=== PATIENT | female | born 1990 | race Caucasian/White ===

== ENCOUNTER → 2017-12-22 | Outpatient (CLI) | payer BC | END | disposition home or self-care (01) | LOC: KCIC US 15:28 | DX: Z34.81 Encounter for supervision of other normal pregnancy, first trimester (principal); Z3A.08 8 weeks gestation of pregnancy | CPT/HCPCS: 76801 ==

== ENCOUNTER → 2018-03-24 | Outpatient (CLI) | payer BC ==
--- NOTE | 2018-03-24 17:13 | RAD ---
Obstetrical ultrasound, 03/24/2018: HISTORY: Large for dates There is a single intrauterine fetus present in a variable orientation. The biparietal diameter measures 5.3 cm compatible with a gestational age of 22 weeks. This corresponds well with the other measurements yielding an average gestational age of 21 weeks and 4 days and a sonographic EDC of 07/31/2018. This is somewhat advanced relative to the EDC of 08/12/2018 established on the previous study of 12/22/2017. Normal activity and heart motion were seen. A four-vessel heart is evident with a heart rate of 139 bpm. A three-vessel umbilical cord is evident with a normal cord insertion site. Fluid is identified in the bladder and stomach. The visualized portions of the kidneys and spine are unremarkable. The head to abdominal circumference ratio is within normal limits. The placenta lies posteriorly with no evidence of a placenta previa. A normal amount of amniotic fluid is present with the ENOC calculated 10.6. The cervical length was estimated at 4.3 cm. IMPRESSION: 1. Single viable intrauterine fetus as described above. 2. The EDC of 08/12/2018 established on the previous ultrasound of 12/22/2017 should be more accurate considering the stage in at which it was established. The mild discrepancy between that EDC and the current EDC described above may reflect a constitutionally large fetus. Electronically signed by: Sanjay Hall MD (03/24/2018 5:10 PM) [facility]
== END | disposition home or self-care (01) ==
LOC: US 15:02
PROVIDERS: ATTEND Family Medicine
DX: O36.62X0 Maternal care for excessive fetal growth, second trimester, not applicable or unspecified (principal); Z3A.22 22 weeks gestation of pregnancy
CPT/HCPCS: 76805

== ENCOUNTER → 2018-06-08 | Outpatient (CLI) | payer BC ==
--- NOTE | 2018-06-08 16:23 | RAD ---
Obstetrical ultrasound, 06/08/2018: HISTORY: Low weight gain in There is a single intrauterine fetus in a cephalic orientation. The biparietal diameter measures 8.4 cm compatible with a gestational age of nearly 34 weeks. This corresponds well with the other measurements yielding a sonographic EDC of 07/20/2018. Note is made that on 12/22/2017 an EDC of 08/12/2018 was estimated. On 03/24/2018 and EDC of 07/31/2018 was estimated. The current EDC is therefore advanced relative to the prior studies. The EDC of 08/12/2018 established on the original study should be more accurate considering the stage in at which it was established. The findings suggest a constitutionally large fetus. Normal activity and heart motion were seen. A four-chamber heart is evident with a heart rate of 143 bpm. Fluid is identified in the bladder and stomach. The spine was not optimally visualized due to the position and the stage of . A three-vessel umbilical cord is evident. The head to abdominal circumference ratio is within normal limits. The weight was estimated at 5 pounds and 3 ounces +/- 12 ounces. A normal amount of amniotic fluid is present with the ENOC calculated at 10.9. The placenta lies posteriorly with no evidence of a placenta previa. The cervical length is 4.5 cm. IMPRESSION: 1. Single viable intrauterine fetus as described above. 2. The growth over the series of ultrasound exams suggests a constitutionally large fetus, as described above. Electronically signed by: Sanjay Hall MD (06/08/2018 4:18 PM) [facility]
== END | disposition home or self-care (01) ==
LOC: US 12:55
PROVIDERS: ATTEND Family Medicine
DX: O26.13 Low weight gain in pregnancy, third trimester (principal); Z3A.34 34 weeks gestation of pregnancy
CPT/HCPCS: 76805

== ENCOUNTER → 2018-07-25 | Outpatient (CLI) | payer BC ==
[~2018-07-25] MED LIST: FERR325T72 PO; HYDR-2765 PO; IBUP-1060 PO
--- NOTE | 2018-07-26 03:32 | KCIC ---
OB ultrasound dated 07/25/2018: No comparison available. Clinical Indication: Large for dates. Findings: There is a single intrauterine gestation in cephalic presentation. The placenta is posterior and fundal in location without evidence of placental previa. The amount of amniotic fluid appears appropriate. ENOC equals 15.4 cm. Cervix is not well visualized and accurate cervical length could not be made. Biometrical data is as follows: BPD = 9.4 cm for 38 weeks 2 days. HC = 33.8 cm for 38 weeks 6 days. AC = 35.6 cmfor 39 weeks 3 days. FL = 7.4 cm for 37 weeks 6 days. Overall, the estimated sonographic gestational age is 38 weeks 4 days for an estimated date of delivery of 08/04/2018.. This is within 8 days of the estimated date of delivery provided by the last menstrual period. Estimated weight is 3628 g. A complete survey was not performed. heart rate 130 bpm. There is positive movement. Impression: Single viable intrauterine gestation with estimated sonographic gestational age of 38 weeks 4 days. This is approximately 8 days off the dates estimated by the last menstrual period. Correlate clinically. Electronically signed by: Acosta Morgan MD (07/26/2018 3:29 AM) [facility]
== END | disposition home or self-care (01) ==
LOC: KCIC US 15:10
PROVIDERS: ATTEND Family Medicine
DX: Z34.03 Encounter for supervision of normal first pregnancy, third trimester (principal); Z3A.38 38 weeks gestation of pregnancy
CPT/HCPCS: 76805

== ENCOUNTER 2018-08-06 19:19 | Inpatient (IN) | payer BC ==
[~2018-08-06] VITALS: Ht 157.5 cm; Wt 72.1 kg
[2018-08-06] MEDS ORDERED: IBUPROFEN 400 MG TABLET. PO PRN (19:45)
[2018-08-06] MEDS ORDERED: ONDANSETRON PF 4 MG/2 ML VIAL. IV PRN (19:45)
[2018-08-06] MEDS ORDERED: MAG HYDROX/ALUMINUM HYD/SIMETH 30 ML ORAL.SUSP PO PRN (19:45)
[2018-08-06] MEDS ORDERED: OXYTOCIN 30 UNIT/500 ML PREMIX 500 ML IV PRN (19:45)
[2018-08-06] MEDS ORDERED: NALBUPHINE 10 MG/ML AMPUL. IV PRN (19:45)
[2018-08-06] MEDS ORDERED: ACETAMINOPHEN 325 MG TABLET. PO PRN (19:45)
[2018-08-06] MEDS ORDERED: 0.9 % SODIUM CHLORIDE 10 ML DISP.SYRIN. IV PRN (19:45)
[2018-08-06] MEDS ORDERED: CITRIC ACID/SODIUM CITRATE 30 ML SOLUTION. PO PRN (19:45)
[2018-08-06] MEDS ORDERED: DOCUSATE SODIUM 283 MG/5 ML ENEMA. PR PRN (19:45)
[2018-08-06] MEDS ORDERED: TERBUTALINE 1 MG/ML VIAL. SQ PRN (19:45)
[2018-08-06] MEDS ORDERED: ZOLPIDEM 5 MG TABLET. PO PRN (19:45)
[2018-08-06] MEDS ORDERED: DINOPROSTONE 10 MG SUPP.VAG VG ONE (20:30)
[2018-08-06 20:54] LABS: BASO # 0.1 x10^3/uL (0.0-0.2); BASO % 1 % (0-3); EOS # 0.1 x10^3/uL (0.0-0.7); EOS % 1 % (0-3); HEMATOCRIT 36.2 % (36.0-47.0); HEMOGLOBIN 12.3 g/dL (12.0-15.5); LYMPH # 1.8 x10^3/uL (1.0-4.8); LYMPH % 20 % (24-48); MEAN CORPUSCULAR HEMOGLOBIN 33 pg (25-35); MEAN CORPUSCULAR HGB CONC 34 g/dL (31-37); MEAN CORPUSCULAR VOLUME 97 fL (79-100); MONO # 0.7 x10^3/uL (0.0-1.1); MONO % 8 % (0-9); NEUT # 6.4 x10^3uL (1.8-7.7); NEUT % 70 % (31-73); PLATELET COUNT 159 x10^3/uL (140-400); RED BLOOD COUNT 3.74 x10^6/uL (3.50-5.40); RED CELL DISTRIBUTION WIDTH 13.7 % (11.5-14.5); WHITE BLOOD COUNT 9.1 x10^3/uL (4.0-11.0)
[2018-08-06] MEDS ORDERED: AMPICILLIN SODIUM 2 GM in IV NORMAL SALINE 100ML 100 ML IV ONE (22:00)
[2018-08-06] MEDS: IV RINGERS,LACTATED 1000ML 1,000 ML IV SCH (22:06)
[2018-08-07] MEDS: AMPICILLIN SODIUM 1 GM in IV NORMAL SALINE 50ML 50 ML IV SCH ×4 (02:39→13:49)
[2018-08-07] MEDS ORDERED: OXYTOCIN 30 UNIT/500 ML PREMIX 500 ML IV PRN ×2 (06:00→19:15)
[2018-08-07] MEDS: IV RINGERS,LACTATED 1000ML 1,000 ML IV SCH ×2 (09:59→13:53)
[2018-08-07] MEDS: fentaNYL PF VIAL 100 MCG/2 ML VIAL IV PRN ×3 (12:47→18:30)
--- NOTE | 2018-08-07 12:48 | PDOC1 ---
OB - History Hx of Present Care: Good Care Ultrasounds: Normal mid trimester US Obstetrical Complications: Other ( macrosomia) Past Family/Social History * Past Medical, Surgical, Family and Obstetric Histories reviewed from chart. Blood Type: A+ Rubella: Immune RPR/VDRL: Negative GBS Status: Positive HBsAG: Negative OB - Chief Complaint & HPI Date of Admission: Date of Admission: Aug 06, 2018 at 19:19 Chief Complaint/History : 1 Para: 0 EDC: Aug 12, 2018 Reason for admission: induction of labor Indication for induction: other (he'll macrosomia) Admission Nurse Assessment Rev: Yes OB - Admission Exam Physical Exam HEENT: Normal, Nasal Mucosa Normal, Oropharynx Normal, Moist Membranes, Fontanelles Normal Lungs: Clear, Equal Abdomen: Gravid Extremities: Normal Pulses, No tenderness or swelling Reflexes: Normal Cervical Dilatation: 2cm Effacement: 75% Station: -2 Membranes: Ruptured Amniotic Fluid: Clear Heart Rate: Normal Accelerations: Accelerations Present Short Term Variability: Present Mcc Variability: Moderate Contractions on Admission: None Intensity: Moderate NELSON ECHEVARRIA MD Aug 07, 2018 12:48
[2018-08-07] MEDS ORDERED: ePHEDrine PF IN SALINE 50 MG/10 ML SYRINGE. IV PRN (13:15)
[2018-08-07] MEDS ORDERED: fentaNYL PF VIAL 100 MCG/2 ML VIAL EPI ONE (13:15)
[2018-08-07] MEDS ORDERED: NALOXONE 0.4 MG/ML VIAL. IV PRN (13:15)
[2018-08-07] MEDS ORDERED: ONDANSETRON PF 4 MG/2 ML VIAL. IV PRN (13:15)
[2018-08-07] MEDS ORDERED: ROPIVacaine 0.2% PF 10 ML VIAL. ONE ×4 (13:16→15:43)
[2018-08-07] MEDS: L&D EPIDURAL SYRINGE 50 ML EPID PRN ×2 (13:22→15:43)
[2018-08-07] MEDS ORDERED: LIDOCAINE 2% PF 5 ML VIAL. ONE (14:39)
[2018-08-07] MEDS: LIDOCAINE 1% PF 30 ML VIAL. INJ PRN ×2 (17:11→18:48)
[2018-08-07] MEDS ORDERED: BENZOCAINE 20% TOPICAL AEROSOL SPRAY 57GM CAN. TP PRN ×2 (18:45→19:15)
[2018-08-07 18:52] LABS: BASE EXCESS IS ARTERIAL -6 mmol/L (0-3); CORRECTED PCO2 64 mmHg; CORRECTED PH 7.15; CORRECTED PO2 14 mmHg; HCO3 IS ARTERIAL 22 mmol/L (21-28); PCO2 IS ARTERIAL 64 mmHg (35-45); PH IS ARTERIAL 7.15 (7.35-7.45); PO2 IS ARTERIAL 14 mmHg (75-100); SAT O2 IS ARTERIAL 11 % (95-99); TCO2 IS ARTERIAL 24 mmol/L (21-32)
[2018-08-07 18:52] LABS: ISTAT BE VENOUS -8 mmol/L (0-3); ISTAT HCO3 VEN 19 mmol/L (24-28); ISTAT PCO2 VEN 44 mmHg (41-51); ISTAT PH VEN 7.26 (7.32-7.42); ISTAT PO2 VEN 23 mmHg (20-40); ISTAT SAT O2 VEN 31 %; ISTAT TCO2 VEN 21 mmol/L (21-32)
[2018-08-07] MEDS ORDERED: HYDROcodone/APAP 7.5/325MG 1 TAB TABLET PO PRN (19:15)
[2018-08-07] MEDS ORDERED: diphenhydrAMINE HCL 25 MG CAPSULE PO PRN (19:15)
[2018-08-07] MEDS ORDERED: HYDROCORTISONE 1% TOPICAL OINTMENT 30GM TUBE. TP PRN (19:15)
[2018-08-07] MEDS ORDERED: MMR per PROTOCOL. MC PRN (19:15)
[2018-08-07] MEDS ORDERED: MAG HYDROX/ALUMINUM HYD/SIMETH 30 ML ORAL.SUSP PO PRN (19:15)
[2018-08-07] MEDS ORDERED: ACETAMINOPHEN 325 MG TABLET. PO PRN (19:15)
[2018-08-07] MEDS ORDERED: SIMETHICONE 80 MG TAB.CHEW PO PRN (19:15)
[2018-08-07] MEDS ORDERED: 0.9 % SODIUM CHLORIDE 10 ML DISP.SYRIN. IV PRN (19:15)
[2018-08-07] MEDS ORDERED: ZOLPIDEM 5 MG TABLET. PO PRN (19:15)
[2018-08-07] MEDS ORDERED: PHENYLEPH/MINERAL OIL/PETROLAT RECTAL OINTMENT 28GM TUBE. RC PRN (19:15)
--- NOTE | 2018-08-07 19:39 | OP ---
DATE OF SURGERY: 08/07/2018 CLINICAL COURSE: This patient is a 28-year-old female, with EDC of 08/12/2018, admitted for elective induction due to macrosomia. The patient is GBS positive, but had no other complications or risks. She received Cervidil, cervical ripening was 2-3 cm dilating to 3 cm overnight and underwent Pitocin augmentation with artificial rupture of membranes at 4 cm with clear fluid noted. The patient progressed to complete without complications. Had failed epidural and delivered a viable male infant. 's head was delivered and suctioned. Subsequently, the shoulders were delivered after reduction of a nuchal cord, 30 seconds of placental resuscitation was done. Cord was clamped and transected, and infant was handed off. Second-degree episiotomy was done prior to delivery of the head and fourth-degree extension was noted after delivery. This was sutured in a layered fashion with initial rectum sutured with imbricating sutures of 3-0 chromic, Kadi's layer then was closed and muscle was approximated. Muscle was closed with 3-0 Vicryl with [id number] sutures superiorly, inferiorly, posteriorly and anteriorly. Second-degree episiotomy was then closed with 3-0 chromic in a running locking fashion. Placenta was delivered intact with 3-vessel cord noted. Uterus was firm with Pitocin on palpation. There was approximately 350 mL blood loss. Vaginal vault was inspected and cervix was inspected without laceration. There was good hemostasis at the end of repair. Mother and baby went to recovery in stable condition. The patient had 4 doses of antibiotics due to GBS positive status prior to delivery. NELSON ECHEVARRIA MD DR: LAYA/francie JOB#: [id number] / [id number]
[2018-08-07] MEDS: HYDROcodone/APAP 7.5/325MG 1 TAB TABLET PO PRN (20:34)
[2018-08-07] MEDS: IBUPROFEN 200 MG TABLET. PO SCH (20:35)
[2018-08-07] MEDS ORDERED: IBUPROFEN 200 MG TABLET. PO SCH (22:00)
[2018-08-07 22:30] VITALS: BP 118/74
[2018-08-07 23:30] VITALS: BP 113/63
[2018-08-08] MEDS: IBUPROFEN 200 MG TABLET. PO SCH ×2 (03:55→16:24)
[2018-08-08] MEDS: HYDROcodone/APAP 7.5/325MG 1 TAB TABLET PO PRN ×3 (04:00→16:23)
[2018-08-08 04:21] VITALS: BP 115/72
[2018-08-08 04:56] LABS: HEMATOCRIT 31.2 % (36.0-47.0); HEMOGLOBIN 10.4 g/dL (12.0-15.5); RED BLOOD COUNT 3.24 x10^6/uL (3.50-5.40); RED CELL DISTRIBUTION WIDTH 13.6 % (11.5-14.5); WHITE BLOOD COUNT 16.3 x10^3/uL (4.0-11.0)
[2018-08-08] MEDS ORDERED: FERROUS SULFATE 325 MG TABLET. PO SCH (08:00)
[2018-08-08] MEDS: MAGNESIUM HYDROXIDE 2,400 MG/30 ML ORAL.SUSP. PO PRN (10:43)
[2018-08-08 12:15] VITALS: BP 121/78
[2018-08-08 16:39] VITALS: BP 141/75
--- NOTE | 2018-08-08 17:18 | PDOC ---
PROGRESS NOTES Subjective Subjective Patient doing well day 1. Good pain control tolerating diet and ambulating. Decrease Jacki and bleeding. Low platelets and leukocytosis noted on CBC mild expected hemorrhagic anemia. Objective Objective Vital Signs Date Time Temp Pulse Resp B/P (MAP) Pulse Ox O2 Delivery O2 Flow Rate FiO2 08/08/18 16:39 97.7 98 18 141/75 (97) Room Air 98.0 97.7 08/08/18 12:15 97 Physical Exam Abdomen: Normal bowel sounds, Other (uterus firm.) Heart: Regular rate Extremities: No edema, Other (negative Alicia's sign) General: Alert Lungs: Clear to auscultation Assessment Assessment day 1. Thrombocytopenia Plan Plan of Care Continue routine care Recheck CBC in a.m. Comment Review of Relevant I have reviewed the following items anirudh (where applicable) has been applied. Labs Laboratory Tests Test 08/06/18 20:30 08/07/18 18:40 08/07/18 18:45 08/08/18 04:38 White Blood Count 9.1 x10^3/uL (4.0-11.0) 16.3 x10^3/uL (4.0-11.0) Red Blood Count 3.74 x10^6/uL (3.50-5.40) 3.24 x10^6/uL (3.50-5.40) Hemoglobin 12.3 g/dL (12.0-15.5) 10.4 g/dL (12.0-15.5) Hematocrit 36.2 % (36.0-47.0) 31.2 % (36.0-47.0) Mean Corpuscular Volume 97 fL (79-100) 96 fL (79-100) Mean Corpuscular Hemoglobin 33 pg (25-35) 32 pg (25-35) Mean Corpuscular Hemoglobin Concent 34 g/dL (31-37) 33 g/dL (31-37) Red Cell Distribution Width 13.7 % (11.5-14.5) 13.6 % (11.5-14.5) Platelet Count 159 x10^3/uL (140-400) 137 x10^3/uL (140-400) Neutrophils (%) (Auto) 70 % (31-73) Lymphocytes (%) (Auto) 20 % (24-48) Monocytes (%) (Auto) 8 % (0-9) Eosinophils (%) (Auto) 1 % (0-3) Basophils (%) (Auto) 1 % (0-3) Neutrophils # (Auto) 6.4 x10^3uL (1.8-7.7) Lymphocytes # (Auto) 1.8 x10^3/uL (1.0-4.8) Monocytes # (Auto) 0.7 x10^3/uL (0.0-1.1) Eosinophils # (Auto) 0.1 x10^3/uL (0.0-0.7) Basophils # (Auto) 0.1 x10^3/uL (0.0-0.2) Treponema pallidum Antibody Nonreactive (Nonreactive) Bedside Arterial pH 7.15 (7.35-7.45) Arterial Blood pH (Temp corrected) 7.15 Bedside Arterial pCO2 64 mmHg (35-45) Arterial Blood pCO2 (Temp correct) 64 mmHg Bedside Arterial pO2 14 mmHg (75-100) Arterial Blood pO2 (Temp corrected) 14 mmHg Arterial Blood HCO3 22 mmol/L (21-28) Bedside Arterial Blood O2 Sat 11 % (95-99) Bedside FiO2 21.0 21.0 Bedside Venous pH 7.26 (7.32-7.42) Bedside Venous pCO2 44 mmHg (41-51) Bedside Venous pO2 23 mmHg (20-40) Venous Blood HCO3 19 mmol/L (24-28) POC Venous O2 Saturation (Jacob) 31 % Laboratory Tests Test 08/07/18 18:40 08/07/18 18:45 08/08/18 04:38 Bedside Arterial pH 7.15 (7.35-7.45) Arterial Blood pH (Temp corrected) 7.15 Bedside Arterial pCO2 64 mmHg (35-45) Arterial Blood pCO2 (Temp correct) 64 mmHg Bedside Arterial pO2 14 mmHg (75-100) Arterial Blood pO2 (Temp corrected) 14 mmHg Arterial Blood HCO3 22 mmol/L (21-28) Bedside Arterial Blood O2 Sat 11 % (95-99) Bedside FiO2 21.0 21.0 Bedside Venous pH 7.26 (7.32-7.42) Bedside Venous pCO2 44 mmHg (41-51) Bedside Venous pO2 23 mmHg (20-40) Venous Blood HCO3 19 mmol/L (24-28) POC Venous O2 Saturation (Jacob) 31 % White Blood Count 16.3 x10^3/uL (4.0-11.0) Red Blood Count 3.24 x10^6/uL (3.50-5.40) Hemoglobin 10.4 g/dL (12.0-15.5) Hematocrit 31.2 % (36.0-47.0) Mean Corpuscular Volume 96 fL (79-100) Mean Corpuscular Hemoglobin 32 pg (25-35) Mean Corpuscular Hemoglobin Concent 33 g/dL (31-37) Red Cell Distribution Width 13.6 % (11.5-14.5) Platelet Count 137 x10^3/uL (140-400) Medications Current Medications Sodium Chloride (Normal Saline Flush) 3 ml QSHIFT PRN IV AFTER MEDS AND BLOOD DRAWS; Start 08/06/18 at 19:45 Ringer's Solution 1,000 ml @ 125 mls/hr Q8H IV Last administered on 08/07/18at 13:53; Start 08/06/18 at 20:00 Nalbuphine HCl (Nubain) 10 mg PRN Q1HR PRN IV Severe labor pain; Start at 19:45 Acetaminophen (Tylenol) 650 mg PRN Q6HRS PRN PO MILD PAIN / TEMP; Start at 19:45; Stop 08/07/18 at 19:26; Status DC Ondansetron HCl (Zofran) 4 mg PRN Q4HRS PRN IV NAUSEA/VOMITING; Start 08/06/18 at 19:45; Stop 08/07/18 at 19:26; Status DC Al Hydroxide/Mg Hydroxide (Mylanta Plus Xs) 30 ml PRN Q4HRS PRN PO HEARTBURN / GAS; Start 08/06/18 at 19:45; Stop 08/07/18 at 19:26; Status DC Citric Acid/ Sodium Citrate (Bicitra) 30 ml 1X PRN PRN PO DYSPEPSIA; Start at 19:45; Stop 08/07/18 at 19:46; Status DC Zolpidem Tartrate (Ambien) 5 mg PRN QHS PRN PO INSOMNIA Last administered on at 00:19; Start 08/06/18 at 19:45; Stop 08/07/18 at 19:26; Status DC Terbutaline Sulfate (Brethine) 0.25 mg 1X PRN PRN SQ SEE COMMENTS; Start at 19:45; Stop 08/07/18 at 19:46; Status DC Lidocaine HCl (Xylocaine 1% Pf 30ml Vial) 30 ml 1X PRN PRN INJ SEE COMMENTS Last administered on 08/07/18at 18:48; Start 08/06/18 at 19:45; Stop 08/08/18 at 19:44 Ampicillin Sodium 2 gm/Sodium Chloride 100 ml @ 200 mls/hr 1X ONCE IV Last administered on 08/06/18at 22:07; Start 08/06/18 at 22:00; Stop 08/06/18 at 22:29 ; Status DC Ampicillin Sodium 1 gm/Sodium Chloride 50 ml @ 100 mls/hr Q4H IV Last administered on 08/07/18at 13:49; Start 08/07/18 at 02:00 Oxytocin/Sodium Chloride 500 ml @ 0 mls/hr CONT PRN IV SEE I/O RECORD Last administered on 08/07/18at 06:10; Start 08/07/18 at 06:00; Stop 08/07/18 at 19:26 ; Status DC Oxytocin/Sodium Chloride 500 ml @ 0 mls/hr CONT PRN PRN IV Post delivery bleeding; Start 08/06/18 at 19:45; Stop 08/07/18 at 19:26; Status DC Ibuprofen (Motrin) 800 mg PRN Q6HRS PRN PO PAIN; Start 08/06/18 at 19:45; Stop 08/07/18 at 19:27; Status DC Docusate Sodium (Enemeez) 283 mg PRN DAILY PRN NE CONSTIPATION; Start 08/06/18 at 19:45 Dinoprostone (Cervidil) 10 mg 1X ONCE VG Last administered on 08/06/18at 20:21 ; Start 08/06/18 at 20:30; Stop 08/06/18 at 20:31; Status DC Fentanyl Citrate (Fentanyl 2ml Vial) 100 mcg PRN Q1HR PRN IV PAIN Last administered on 08/07/18at 18:30; Start 08/07/18 at 12:45 Ephedrine Sulfate (ePHEDrine PF IN SALINE SYRINGE) 10 mg PRN Q2MIN PRN IV IF SBP<90; Start 08/07/18 at 13:15 Naloxone HCl (Narcan) 0.04 mg PRN Q1MIN PRN IV SEE COMMENTS; Start 08/07/18 at 13:15 Fentanyl Citrate (Fentanyl 2ml Vial) 100 mcg 1X ONCE EPI Last administered on 08/07/18at 13:22; Start 08/07/18 at 13:15; Stop 08/07/18 at 13:16; Status DC Ropivacaine/ Fentanyl/NS 50 ml @ 14 mls/hr CONT PRN EPID PAIN Last administered on 08/07/18at 15:43; Start 08/07/18 at 13:15 Ondansetron HCl (Zofran) 4 mg PRN Q6HRS PRN IV NAUSEA/VOMITING; Start 08/07/18 at 13:15 Ropivacaine (Naropin 0.2%) 10 ml STK-MED ONCE .ROUTE ; Start 08/07/18 at 13:16; Stop 08/07/18 at 13:17; Status DC Lidocaine HCl (Lidocaine Pf 2% Vial) 5 ml STK-MED ONCE .ROUTE ; Start 08/07/18 at 14:39; Stop 08/07/18 at 14:40; Status DC Ropivacaine (Naropin 0.2%) 10 ml STK-MED ONCE .ROUTE ; Start 08/07/18 at 15:15; Stop 08/07/18 at 15:16; Status DC Ropivacaine (Naropin 0.2%) 10 ml STK-MED ONCE .ROUTE ; Start 08/07/18 at 15:43; Stop 08/07/18 at 15:44; Status DC Benzocaine (Americaine) 1 spray PRN Q4HRS PRN TP PAIN; Start 08/07/18 at 18:45 ; Stop 08/07/18 at 19:27; Status DC Acetaminophen/ Hydrocodone Bitart (Lortab 7.5/325) 1 tab PRN Q6HRS PRN PO PAIN Last administered on 08/08/18at 16:23; Start 08/07/18 at 19:15 Acetaminophen/ Hydrocodone Bitart (Lortab 7.5/325) 2 tab PRN Q6HRS PRN PO PAIN ; Start 08/07/18 at 19:15 Ibuprofen (Motrin) 800 mg Q8HRS PO ; Start 08/07/18 at 22:00; Stop 08/07/18 at 22:00; Status DC Sodium Chloride (Normal Saline Flush) 10 ml QSHIFT PRN IV AFTER MEDS AND BLOOD DRAWS; Start 08/07/18 at 19:15 Oxytocin/Sodium Chloride 500 ml @ 62.5 mls/hr CONT PRN IV SEE I/O RECORD; Start 08/07/18 at 19:15; Stop 08/08/18 at 03:14; Status DC Acetaminophen (Tylenol) 650 mg PRN Q6HRS PRN PO MILD PAIN / TEMP; Start at 19:15 Magnesium Hydroxide (Milk Of Magnesia) 2,400 mg PRN DAILY PRN PO CONSTIPATION Last administered on 08/08/18at 10:43; Start 08/07/18 at 19:15 Al Hydroxide/Mg Hydroxide (Mylanta Plus Xs) 30 ml PRN Q4HRS PRN PO HEARTBURN / GAS; Start 08/07/18 at 19:15 Simethicone (Gas-X) 80 mg PRN AFTMEALHC PRN PO GAS / BLOATING; Start 08/07/18 at 19:15 Diphenhydramine HCl (Benadryl) 25 mg PRN Q6HRS PRN PO ITCHING; Start 08/07/18 at 19:15 Benzocaine (Americaine) 1 spray PRN QID PRN TP TOPICAL PAIN; Start 08/07/18 at 19:15 Phenyleph/Shark Oil/Min Oil/Petrol (Preparation H) 1 yoel PRN QID PRN RC RECTAL PAIN; Start 08/07/18 at 19:15 Hydrocortisone (Cortaid) 1 yoel PRN QID PRN TP PERINEAL PAIN; Start 08/07/18 at 19:15 Ferrous Sulfate (Feosol) 325 mg BIDWMEALS PO ; Start 08/08/18 at 08:00 Zolpidem Tartrate (Ambien) 5 mg PRN QHS PRN PO INSOMNIA, MAY REPEAT X1; Start 08/07/18 at 19:15 Info (Do NOT chart on this placeholder) 1 ea 1X PRN PRN MC SEE COMMENTS; Start 08/07/18 at 19:15 Info (Do NOT chart on this placeholder) 1 ea 1X PRN PRN MC SEE COMMENTS; Start 08/07/18 at 19:15 Ibuprofen (Motrin) 800 mg Q8HRS PO Last administered on 08/08/18at 16:24; Start 08/07/18 at 20:30 Ropivacaine (Naropin 0.2%) 30 ml STK-MED ONCE .ROUTE ; Start 08/07/18 at 15:00; Stop 08/08/18 at 09:10; Status DC Vitals/I & O Vital Sign - Last 24 Hours 08/07/18 08/07/18 08/07/18 08/07/18 18:30 20:34 22:30 23:30 Temp 97.5 97.9 97.5 97.9 Pulse 94 89 Resp 16 18 18 18 B/P (MAP) 118/74 (89) 113/63 (80) Pulse Ox 98 96 O2 Delivery Room Air Room Air Room Air Room Air 08/08/18 08/08/18 08/08/18 08/08/18 04:00 04:21 05:00 12:15 Temp 97.7 98.2 97.7 98.2 Pulse 75 84 Resp 18 18 18 16 B/P (MAP) 115/72 (86) 121/78 (92) Pulse Ox 97 97 O2 Delivery Room Air Room Air Room Air Room Air 08/08/18 16:39 Temp 97.7 97.7 Pulse 98 Resp 18 B/P (MAP) 141/75 (97) O2 Delivery Room Air O2 Flow Rate 98.0 NELSON ECHEVARRIA MD Aug 08, 2018 17:18
[2018-08-08 23:03] VITALS: BP 133/79
[2018-08-09] MEDS: IBUPROFEN 200 MG TABLET. PO SCH ×2 (02:50→11:36)
[2018-08-09 05:44] VITALS: BP 116/72
[2018-08-09 06:03] LABS: HEMATOCRIT 30.9 % (36.0-47.0); HEMOGLOBIN 10.5 g/dL (12.0-15.5); RED BLOOD COUNT 3.21 x10^6/uL (3.50-5.40); RED CELL DISTRIBUTION WIDTH 13.8 % (11.5-14.5); WHITE BLOOD COUNT 11.8 x10^3/uL (4.0-11.0)
[2018-08-09] MEDS ORDERED: HYDR-2765 PO (09:12)
[2018-08-09] MEDS ORDERED: IBUP-1060 PO (09:12)
[2018-08-09] MEDS ORDERED: FERR325T72 PO (09:12)
[2018-08-09 11:20] VITALS: BP 124/71
[2018-08-09] MEDS: MAGNESIUM HYDROXIDE 2,400 MG/30 ML ORAL.SUSP. PO PRN (11:36)
--- NOTE | 2018-08-09 11:41 | PDOC3 ---
OB DISCHARGE SUMMARY DATE OF ADMISSION: 08/06/18 DATE OF DISCHARGE: 08/09/18 REASON FOR ADMISSION: Induction of labor INTRAPARTUM PROCEDURES: Perineal Laceration (fourth degree laceration with repair) DISCHARGE DIAGNOSIS: Term Delivered DISCHARGE INFORMATION: Activity (no sexual activity for 6 weeks) HOSPITAL COURSE Uncomplicated CONDITION AT DISCHARGE Stable follow-up 6 weeks NELSON ECHEVARRIA MD Aug 09, 2018 11:41
[2018-08-09 16:45] VITALS: BP 121/74
== END 2018-08-09 18:41 | disposition home or self-care (01) | DRG 768 ==
LOC: 3 SO LND 19:19
PROVIDERS: ADMIT Family Medicine; ATTEND Family Medicine
PROC: 10E0XZZ Delivery of Products of Conception, External Approach (ICD-10-PCS; principal; 2018-08-07)
PROC: 0DQP0ZZ Repair Rectum, Open Approach (ICD-10-PCS; 2018-08-07)
PROC: 10907ZC Drainage of Amniotic Fluid, Therapeutic from Products of Conception, Via Natural or Artificial Opening (ICD-10-PCS; 2018-08-07)
PROC: 3E0R3BZ Introduction of Anesthetic Agent into Spinal Canal, Percutaneous Approach (ICD-10-PCS; 2018-08-07)
PROC: 3E0R33Z Introduction of Anti-inflammatory into Spinal Canal, Percutaneous Approach (ICD-10-PCS; 2018-08-07)
PROC: 0W8NXZZ Division of Female Perineum, External Approach (ICD-10-PCS; 2018-08-07)
DX: O98.82 Other maternal infectious and parasitic diseases complicating childbirth (principal); Z37.0 Single live birth; O99.12 Other diseases of the blood and blood-forming organs and certain disorders involving the immune mechanism complicating childbirth; O70.3 Fourth degree perineal laceration during delivery; B95.1 Streptococcus, group B, as the cause of diseases classified elsewhere; O36.63X0 Maternal care for excessive fetal growth, third trimester, not applicable or unspecified; D50.0 Iron deficiency anemia secondary to blood loss (chronic); D69.6 Thrombocytopenia, unspecified; D72.829 Elevated white blood cell count, unspecified; O99.02 Anemia complicating childbirth; O69.81X0 Labor and delivery complicated by cord around neck, without compression, not applicable or unspecified; Z3A.39 39 weeks gestation of pregnancy
CPT/HCPCS: 36415; 82803; 85025; 85027; 86592; 86850; 86900; 86901; J0290; J2590; J2795; J3010; J7120

== ENCOUNTER 2018-08-27 06:22 | Emergency (ER) | payer BC ==
[~2018-08-27] VITALS: Ht 157.5 cm; Wt 68.0 kg
[2018-08-27 06:22] VITALS: BP 119/70
--- NOTE | 2018-08-27 06:47 | PHYS DOC ---
Adult General Chief Complaint Chief Complaint: FEVER HPI HPI Patient is a 28 year old female who presents to the ER for evaluation of fever. Patient status post uncomplicated vaginal delivery on August 07. Patient reports onset of left breast pain/fever/myalgias on Tuesday. On Tuesday went to an urgent care and was diagnosed with mastitis. Patient started on dicloxacillin. She has had 6 doses. She has not had any antibiotics today. Patient has been pumping exclusively on the left side but with good output. Patient reports a low-grade fever last night but actually fell asleep underneath an electric blanket and woke up early this morning feeling diffuse myalgias and had a temperature of 103. This is since improved significantly and she is feeling significantly better. No cough, no fever exposure, some very mild vaginal bleeding that is continuing to improve. No odorous vaginal discharge, no abdominal pain, went on a walk yesterday without any distress. Review of Systems Review of Systems Constitutional: +fever, +chills HENT: Denies nasal congestion or sore throat [] Respiratory: Denies cough or shortness of breath [] Cardiovascular: no chest Pain, No LE edema GI: Denies abdominal pain, nausea, vomiting, bloody stools or diarrhea [] : Denies dysuria or hematuria [] Musculoskeletal: Denies back pain or joint pain [] Integument: Denies rash or skin lesions [] All other systems were reviewed and found to be within normal limits, except as documented in this note. Allergies Allergies Allergies Coded Allergies Type Severity Reaction Last Updated Verified No Known Drug Allergies 08/06/18 No Physical Exam Physical Exam Constitutional: Well developed, well nourished, no acute distress, non-toxic appearance. [] HENT: Normocephalic, atraumatic, Eyes: PERRLA, EOMI, Neck: supple, no stridor. [] Cardiovascular:Heart rate regular rhythm, no murmur [] Lungs & Thorax: Bilateral breath sounds clear to auscultation [] Abdomen: Bowel sounds normal, soft, no tenderness, Breast: Left breast slightly more engorged compared to right. left breast with No palpable firmness or area of fluctuance, tissue is diffusely soft. There is some very mild blanchable erythema to the lateral aspect of left breast. No axillary lymphadenopathy. Skin: Warm, dry, Extremities: ROM intact, no edema. [] Neurologic: Alert and oriented X 3, no focal deficits noted. [] Psychologic: Affect normal, judgement normal, mood normal. [] EKG EKG [] Radiology/Procedures Radiology/Procedures [] Course & Med Decision Making Course & Med Decision Making Pertinent Labs and Imaging studies reviewed. (See chart for details) [1852: Patient only 6 doses into course of treatment for mastitis. Significant fever this morning after sleeping underneath an electric blanket. Temperature has nearly resolved with no antipyretics this am. Family is reassuring. Patient is very well-appearing. Discussed continue supportive care. Advised continued compliance with antibiotics. Advised follow-up with delivering physician tomorrow. ER return precautions given. Patient verbalized understanding. All questions answered.] Dragon Disclaimer Dragon Disclaimer This electronic medical record was generated, in whole or in part, using a voice recognition dictation system. Departure Departure Impression: Primary Impression: Mastitis Additional Impressions: Mastitis associated with childbirth, delivered Fever Disposition: HOME, SELF-CARE Admitting Physician: Nelson Mayfield Condition: STABLE Referrals: NELSON MAYFIELD MD (PCP) Patient Instructions: , Mastitis, Mastitis Additional Instructions: Thank you for coming to [facility]. Please read the attached handouts. Please follow-up with your primary care physician. Return to the ER if your symptoms worsen or you have any other concerns. Complete the entire course of antibiotics. Encourage breast-feeding on the affected side. Please take ibuprofen 800 mg 3 times a day with food for fever/ pain. Alternate this with 1000 mg of acetaminophen. Do not exceed 4000 mg of acetaminophen. If you are not having improvement or have persistent fevers tomorrow morning please call your delivering physician. Problem Qualifiers CYRUS MARTINEZ DO Aug 27, 2018 06:47
== END 2018-08-27 06:57 | disposition home or self-care (01) ==
LOC: ER 06:22
DX: O91.22 Nonpurulent mastitis associated with the puerperium (principal); R50.9 Fever, unspecified
CPT/HCPCS: 99281

== ENCOUNTER → 2019-12-03 | Outpatient (CLI) | payer BC ==
--- NOTE | 2019-12-03 17:37 | RAD ---
OB < 14 WKS History: Reason: UNSURE DATES / Spl. Instructions: / History: Comparison: None. Technique: Grayscale and color Doppler imaging of the pelvis was performed using transabdominal technique. Findings: The uterus measures 11 x 8 x 7 cm. Single intrauterine gestational sac with oblong appearance. Yolk sac not identified. pole is also identified with crown-rump length 4 cm. Estimated gestational age by ultrasound 10 weeks 6 days. heart rate 168 bpm. Estimated date of completion by ultrasound June 24, 2020. Right ovary measures 2.6 x 1.4 x 1.7 cm. Normal Doppler flow to the right ovary. Left ovary not identified due to overlying structures and bowel gas. No adnexal masses are seen. IMPRESSION: 1. Single intrauterine with estimated gestational age 10 weeks 6 days and heart rate 168 bpm. Electronically signed by: Sanjeev De La Rosa DO (12/03/2019 5:34 PM) [id number]
== END | disposition home or self-care (01) ==
LOC: US 15:36
PROVIDERS: ATTEND Family Medicine
DX: Z34.01 Encounter for supervision of normal first pregnancy, first trimester (principal); Z3A.10 10 weeks gestation of pregnancy
CPT/HCPCS: 76801

== ENCOUNTER → 2020-02-06 | Outpatient (CLI) | payer BC ==
--- NOTE | 2020-02-06 16:24 | KCIC ---
EXAM: Obstetrics sonogram. HISTORY: Size and dates assessment. TECHNIQUE: Sonographic imaging of a gravid uterus was performed. COMPARISON: 12/03/2019. FINDINGS: There is a single intrauterine fetus in variable presentation with a normal heart rate of 157 bpm. There is a three-vessel umbilical cord with normal insertion. The stomach, kidneys, bladder, spine, brain, facial profile and heart are unremarkable. The anatomic fluid volume is normal for 2.0 cm. The biparietal diameter is 4.95 cm, corresponding with 21 weeks and 0 days. The head circumference is 17.52 cm corresponding with 20 weeks and 0 days. The abdominal circumference is 15.91 cm, corresponding with 21 weeks and 0 days. The femoral length is 3.34 cm, corresponding with 20 weeks and 3 days. The estimated gestational age patient combined also measurements is 20 weeks and 4 days and the estimated weight is 372 g. The cervix is long and closed. There is a posterior placenta without evidence of placenta previa. IMPRESSION: Single imaging fetus with normal heart rate and gestational age patient also measurements of 20 weeks and 4 days. Electronically signed by: Kitty Carter MD (02/06/2020 4:22 PM) [id number]
== END | disposition home or self-care (01) ==
LOC: KCIC US 15:25
PROVIDERS: ATTEND Family Medicine
DX: Z34.02 Encounter for supervision of normal first pregnancy, second trimester (principal); Z3A.20 20 weeks gestation of pregnancy
CPT/HCPCS: 76805

== ENCOUNTER → 2020-06-12 | Outpatient (CLI) | payer BC ==
[~2020-06-12] MED LIST changes: +DOCU-153 PO
== END ==
LOC: LAB 09:34
PROVIDERS: ATTEND Family Medicine
DX: Z01.812 Encounter for preprocedural laboratory examination (principal); Z20.828 Contact with and (suspected) exposure to other viral communicable diseases
CPT/HCPCS: U0003

== ENCOUNTER 2020-06-16 19:05 | Inpatient (IN) | payer BC ==
[~2020-06-16] VITALS: Ht 157.5 cm; Wt 78.0 kg
[~2020-06-16 19:05] MED LIST changes: -DOCU-153 PO
[2020-06-16] MEDS ORDERED: OXYTOCIN 30 UNIT/500 ML PREMIX 500 ML IV PRN ×2 (19:30)
[2020-06-16] MEDS ORDERED: ACETAMINOPHEN 325 MG TABLET. PO PRN (19:30)
[2020-06-16] MEDS ORDERED: DINOPROSTONE 10 MG SUPP.VAG VG ONE (19:30)
[2020-06-16] MEDS ORDERED: ZOLPIDEM 5 MG TABLET. PO PRN (19:30)
[2020-06-16] MEDS ORDERED: BUTORPHANOL 2 MG/ML VIAL. IVP PRN (19:30)
[2020-06-16] MEDS ORDERED: fentaNYL PF VIAL 100 MCG/2 ML VIAL IVP PRN (19:30)
[2020-06-16] MEDS ORDERED: ONDANSETRON PF 4 MG/2 ML VIAL. IVP PRN (19:30)
[2020-06-16] MEDS ORDERED: IBUPROFEN 400 MG TABLET. PO PRN (19:30)
[2020-06-16] MEDS ORDERED: LIDOCAINE 1% PF 30 ML VIAL. INJ PRN (19:30)
[2020-06-16] MEDS ORDERED: TERBUTALINE 1 MG/ML VIAL. SQ PRN (19:30)
[2020-06-16] MEDS ORDERED: 0.9 % SODIUM CHLORIDE 10 ML DISP.SYRIN. IV PRN (19:30)
[2020-06-16 20:07] LABS: BILIRUBIN,URINE NEGATIVE (NEG); CLARITY,URINE CLOUDY; COLOR,URINE YELLOW; NITRITE,URINE NEGATIVE (NEG); PROTEIN,URINE NEGATIVE (NEG-TRACE); UROBILINOGEN,URINE 0.2 mg/dL (0.2 mg/dL)
[2020-06-16 20:13] LABS: BACTERIA,URINE MODERATE /HPF (0-FEW)
[2020-06-16 20:16] LABS: RBC,URINE 0 /HPF (0-2)
[2020-06-16 20:49] LABS: BASO % 1 % (0-3); EOS # 0.1 x10^3/uL (0.0-0.7); EOS % 1 % (0-3); HEMATOCRIT 34.8 % (36.0-47.0); HEMOGLOBIN 11.9 g/dL (12.0-15.5); LYMPH # 2.2 x10^3/uL (1.0-4.8); LYMPH % 20 % (24-48); MEAN CORPUSCULAR HEMOGLOBIN 32 pg (25-35); MEAN CORPUSCULAR HGB CONC 34 g/dL (31-37); MEAN CORPUSCULAR VOLUME 94 fL (79-100); MONO # 0.7 x10^3/uL (0.0-1.1); MONO % 7 % (0-9); NEUT # 7.9 x10^3/uL (1.8-7.7); NEUT % 72 % (31-73); PLATELET COUNT 185 x10^3/uL (140-400); RED BLOOD COUNT 3.72 x10^6/uL (3.50-5.40); RED CELL DISTRIBUTION WIDTH 13.1 % (11.5-14.5); WHITE BLOOD COUNT 10.9 x10^3/uL (4.0-11.0)
[2020-06-16] MEDS: IV RINGERS,LACTATED 1000ML 1,000 ML IV SCH (20:59)
[2020-06-17 03:14] VITALS: BP 137/73
[2020-06-17] MEDS ORDERED: OXYTOCIN PREMIX 30 UNIT/500 ML NS BAG. IV ONE (06:00)
[2020-06-17] MEDS ORDERED: LIDOCAINE 2% PF 5 ML VIAL. ONE (09:22)
[2020-06-17] MEDS ORDERED: L&D EPIDURAL SYRINGE 50 ML ONE (09:34)
[2020-06-17] MEDS ORDERED: L&D EPIDURAL 50 ML SYRINGE. ONE (10:00)
[2020-06-17] MEDS: IV RINGERS,LACTATED 1000ML 1,000 ML IV SCH ×2 (10:46→11:40)
--- NOTE | 2020-06-17 11:25 | PDOC1 ---
OB - History Hx of Present Care: Good Care Ultrasounds: Normal mid trimester US Obstetrical Complications: None Medical Complications: None Past Family/Social History * Past Medical, Surgical, Family and Obstetric Histories reviewed from chart. Blood Type: A+ Rubella: Immune RPR/VDRL: Negative GBS Status: Negative HBsAG: Negative OB - Chief Complaint & HPI Date of Admission: Date of Admission: Jun 16, 2020 at 19:05 Chief Complaint/History : 2 Para: 1 EDC: Jun 24, 2020 Reason for admission: induction of labor (Suspected macrosomia) Admission Nurse Assessment Rev: Yes OB - Admission Exam Physical Exam Vitals: VS - Last 72 Hours, by Label Date Time Temp Pulse Resp B/P (MAP) Pulse Ox O2 Delivery O2 Flow Rate FiO2 06/17/20 03:14 98.3 94 18 137/73 (94) Room Air 98.3 HEENT: Normal, Nasal Mucosa Normal, Oropharynx Normal, Moist Membranes, Fontane lles Normal Lungs: Clear, Equal Abdomen: Gravid Extremities: Normal Pulses, No tenderness or swelling Reflexes: Normal Cervical Dilatation: 3cm Effacement: 75% Station: -3 Membranes: Ruptured Amniotic Fluid: Clear Heart Rate: Normal Accelerations: Accelerations Present Decelerations: Variable decelerations Short Term Variability: Present Alf Variability: Moderate Contractions on Admission: < 5 Minutes Apart Intensity: Moderate NELSON ECHEVARRIA MD Jun 17, 2020 11:25
[2020-06-17] MEDS ORDERED: SIMETHICONE 80 MG TAB.CHEW PO PRN (11:30)
[2020-06-17] MEDS ORDERED: diphenhydrAMINE HCL 25 MG CAPSULE PO PRN (11:30)
[2020-06-17] MEDS ORDERED: MAGNESIUM HYDROXIDE 2,400 MG/30 ML ORAL.SUSP. PO PRN (11:30)
[2020-06-17] MEDS ORDERED: HYDROcodone/APAP 5/325MG 1 TAB TABLET PO PRN ×2 (11:30)
[2020-06-17] MEDS ORDERED: MMR per PROTOCOL. MC PRN (11:30)
[2020-06-17] MEDS ORDERED: PHENYLEPH/MINERAL OIL/PETROLAT RECTAL OINTMENT TUBE. RC PRN (11:30)
[2020-06-17] MEDS ORDERED: TDaP (Adacel) per PROTOCOL. MC PRN (11:30)
[2020-06-17] MEDS ORDERED: MAG HYDROX/ALUMINUM HYD/SIMETH 30 ML ORAL.SUSP PO PRN (11:30)
--- NOTE | 2020-06-17 13:21 | OP ---
DATE OF SURGERY: 06/17/2020 DELIVERY NOTE CLINICAL COURSE: This patient is a female admitted for term induction due to history of macrosomic and forceps-assisted delivery. She had no other complications or risks. She was due on 06/24/2020 making her 39 weeks 0 days today. She underwent Cervidil cervical ripening at 2 cm and dilated to 3-4 cm, was started on Pitocin, initially had hyperstimulation with a deceleration. This resolved once Pitocin was discontinued and recovered well. Artificial rupture of membranes was done with clear fluid noted. Internal monitors for IUP and scalp electrode were placed. Labor progressed without incident with just 2 Pitocin during labor, achieving complete cervical dilatation, delivering a viable male in the OA presentation. Head was delivered and suctioned. No nuchal cord was noted and body was delivered, 30 seconds of placental resuscitation was done and cord was clamped and transected. Infant was handed off. Cord blood was obtained and cord was delivered intact with 3-vessel cord noted. There was good hemostasis with Pitocin and palpation. There was a first-degree midline laceration noted. This was sutured with 3-0 chromic in a running locking fashion. There was approximately 250 mL blood loss. Epidural anesthesia was used at approximately 5-6 cm for anesthesia during this delivery. Mother and baby to recovery in stable condition. NELSON ECHEVARRIA MD DR: LAYA/francie JOB#: [id number] / [id number]
[2020-06-17] MEDS: IBUPROFEN 400 MG TABLET. PO SCH ×2 (14:00→17:20)
[2020-06-17 14:01] VITALS: BP 122/64
[2020-06-17 15:34] VITALS: BP 134/83
[2020-06-18] MEDS: IBUPROFEN 400 MG TABLET. PO PRN ×2 (01:03→10:08)
[2020-06-18 01:11] VITALS: BP 110/59
[2020-06-18 05:15] VITALS: BP_SYST 106
[2020-06-18 06:08] LABS: BASO % 1 % (0-3); EOS # 0.2 x10^3/uL (0.0-0.7); EOS % 2 % (0-3); HEMATOCRIT 32.3 % (36.0-47.0); HEMOGLOBIN 10.9 g/dL (12.0-15.5); LYMPH # 1.8 x10^3/uL (1.0-4.8); LYMPH % 23 % (24-48); MEAN CORPUSCULAR HEMOGLOBIN 32 pg (25-35); MEAN CORPUSCULAR HGB CONC 34 g/dL (31-37); MEAN CORPUSCULAR VOLUME 95 fL (79-100); MONO # 0.5 x10^3/uL (0.0-1.1); MONO % 7 % (0-9); NEUT # 5.2 x10^3/uL (1.8-7.7); NEUT % 67 % (31-73); PLATELET COUNT 141 x10^3/uL (140-400); RED BLOOD COUNT 3.41 x10^6/uL (3.50-5.40); RED CELL DISTRIBUTION WIDTH 13.6 % (11.5-14.5); WHITE BLOOD COUNT 7.7 x10^3/uL (4.0-11.0)
[2020-06-18] MEDS ORDERED: FERROUS SULFATE 325 MG TABLET. PO SCH (08:00)
[2020-06-18] MEDS ORDERED: MULTIVITAMIN with MINERAL TABLET. PO SCH (09:00)
[2020-06-18] MEDS ORDERED: DOCUSATE SODIUM 100 MG CAPSULE. PO PRN (10:00)
--- NOTE | 2020-06-18 10:20 | PDOC ---
PROGRESS NOTES Date of Service DATE: 06/18/20 TIME: 10:18 Subjective Subjective Patient doing well day 1. Describes decreased bleeding and lochia. Patient ambulating tolerating diet. Patient does have postdelivery pain when breast-feeding due to cramping in her uterus. Pain controlled with Motrin and hydrocodone. Objective Objective Vital Signs Date Time Temp Pulse Resp B/P (MAP) Pulse Ox O2 Delivery O2 Flow Rate FiO2 06/18/20 05:15 98.4 72 18 106/ 98.4 06/18/20 01:11 98 06/17/20 03:14 Room Air Intake and Output 06/18/20 07:00 Intake Total 2100 ml Output Total 500 ml Balance 1600 ml Intake Oral 2100 ml Output Urine Total 500 ml Physical Exam Abdomen: Normal bowel sounds, Soft, No tenderness, No hepatosplenomegaly, No masses Heart: Regular rate, Normal S1, Normal S2, No murmurs, Gallops Extremities: No clubbing, No cyanosis, No edema, Normal pulses, No tenderness/swelling, Other (Negative Homans' sign, 1+ pedal edema) General: Alert, Oriented X3, Cooperative, No acute distress HEENT: Mucous membr. moist/pink Lungs: Clear to auscultation, Normal air movement MUSCULOSKELETAL: No joint tenderness, No deformity, No swelling, No muscular tenderness noted, Full range of motion without pain Neck: Supple, No JVD, No thyromegaly Neuro: Normal gait, Normal speech, Normal tone, Sensation intact, Reflexes 2+ Psych/Mental Status: Mental status NL, Mood NL Skin: No rashes, No breakdown, No significant lesion Assessment Assessment day #1 Plan Plan of Care Routine care Comment Review of Relevant I have reviewed the following items anirudh (where applicable) has been applied. Labs Laboratory Tests Test 06/16/20 19:30 06/16/20 20:30 06/18/20 05:00 Urine Collection Type Void Urine Color Yellow Urine Clarity Cloudy Urine pH 6.0 (<5.0-8.0) Urine Specific Mcfarland 1.025 (1.000-1.030) Urine Protein Negative mg/dL (NEG-TRACE) Urine Glucose (UA) Negative mg/dL (NEG) Urine Ketones (Stick) Trace mg/dL (NEG) Urine Blood Negative (NEG) Urine Nitrite Negative (NEG) Urine Bilirubin Negative (NEG) Urine Urobilinogen Dipstick 0.2 mg/dL (0.2 mg/dL) Urine Leukocyte Esterase Moderate (NEG) Urine RBC 0 /HPF (0-2) Urine WBC 1-4 /HPF (0-4) Urine Squamous Epithelial Cells Many /LPF Urine Bacteria Moderate /HPF (0-FEW) Urine Mucus Marked /LPF White Blood Count 10.9 x10^3/uL (4.0-11.0) 7.7 x10^3/uL (4.0-11.0) Red Blood Count 3.72 x10^6/uL (3.50-5.40) 3.41 x10^6/uL (3.50-5.40) Hemoglobin 11.9 g/dL (12.0-15.5) 10.9 g/dL (12.0-15.5) Hematocrit 34.8 % (36.0-47.0) 32.3 % (36.0-47.0) Mean Corpuscular Volume 94 fL (79-100) 95 fL (79-100) Mean Corpuscular Hemoglobin 32 pg (25-35) 32 pg (25-35) Mean Corpuscular Hemoglobin Concent 34 g/dL (31-37) 34 g/dL (31-37) Red Cell Distribution Width 13.1 % (11.5-14.5) 13.6 % (11.5-14.5) Platelet Count 185 x10^3/uL (140-400) 141 x10^3/uL (140-400) Neutrophils (%) (Auto) 72 % (31-73) 67 % (31-73) Lymphocytes (%) (Auto) 20 % (24-48) 23 % (24-48) Monocytes (%) (Auto) 7 % (0-9) 7 % (0-9) Eosinophils (%) (Auto) 1 % (0-3) 2 % (0-3) Basophils (%) (Auto) 1 % (0-3) 1 % (0-3) Neutrophils # (Auto) 7.9 x10^3/uL (1.8-7.7) 5.2 x10^3/uL (1.8-7.7) Lymphocytes # (Auto) 2.2 x10^3/uL (1.0-4.8) 1.8 x10^3/uL (1.0-4.8) Monocytes # (Auto) 0.7 x10^3/uL (0.0-1.1) 0.5 x10^3/uL (0.0-1.1) Eosinophils # (Auto) 0.1 x10^3/uL (0.0-0.7) 0.2 x10^3/uL (0.0-0.7) Basophils # (Auto) 0.0 x10^3/uL (0.0-0.2) 0.0 x10^3/uL (0.0-0.2) Treponema pallidum Antibody Nonreactive (Nonreactive) Laboratory Tests Test 06/18/20 05:00 White Blood Count 7.7 x10^3/uL (4.0-11.0) Red Blood Count 3.41 x10^6/uL (3.50-5.40) Hemoglobin 10.9 g/dL (12.0-15.5) Hematocrit 32.3 % (36.0-47.0) Mean Corpuscular Volume 95 fL (79-100) Mean Corpuscular Hemoglobin 32 pg (25-35) Mean Corpuscular Hemoglobin Concent 34 g/dL (31-37) Red Cell Distribution Width 13.6 % (11.5-14.5) Platelet Count 141 x10^3/uL (140-400) Neutrophils (%) (Auto) 67 % (31-73) Lymphocytes (%) (Auto) 23 % (24-48) Monocytes (%) (Auto) 7 % (0-9) Eosinophils (%) (Auto) 2 % (0-3) Basophils (%) (Auto) 1 % (0-3) Neutrophils # (Auto) 5.2 x10^3/uL (1.8-7.7) Lymphocytes # (Auto) 1.8 x10^3/uL (1.0-4.8) Monocytes # (Auto) 0.5 x10^3/uL (0.0-1.1) Eosinophils # (Auto) 0.2 x10^3/uL (0.0-0.7) Basophils # (Auto) 0.0 x10^3/uL (0.0-0.2) Microbiology 06/16/20 Urine Culture - Final, Complete Medications Current Medications Sodium Chloride (Normal Saline Flush) 3 ml QSHIFT PRN IV AFTER MEDS AND BLOOD DRAWS; Start 06/16/20 at 19:30 Ringer's Solution 1,000 ml @ 125 mls/hr Q8H IV Last administered on 06/17/20at 11:40; Start 06/16/20 at 19:30; Stop 06/17/20 at 21:08; Status DC Butorphanol Tartrate (Stadol) 2 mg PRN Q1HR PRN IVP Severe labor pain; Start 06/16/20 at 19:30; Stop 06/17/20 at 21:08; Status DC Fentanyl Citrate (Fentanyl 2ml Vial) 100 mcg PRN Q20MIN PRN IVP Labor pain; Start 06/16/20 at 19:30; Stop 06/17/20 at 21:08; Status DC Acetaminophen (Tylenol) 650 mg PRN Q6HRS PRN PO MILD PAIN / TEMP > 100.3'F; Start 06/16/20 at 19:30 Ondansetron HCl (Zofran) 4 mg PRN Q4HRS PRN IVP NAUSEA/VOMITING; Start 06/16/20 at 19:30; Stop 06/17/20 at 21:08; Status DC Zolpidem Tartrate (Ambien) 5 mg PRN QHS PRN PO INSOMNIA Last administered on 06/16/20at 23:06; Start 06/16/20 at 19:30 Terbutaline Sulfate (Brethine) 0.25 mg 1X PRN PRN SQ SEE COMMENTS; Start 06/16/20 at 19:30; Stop 06/17/20 at 19:29; Status DC Lidocaine HCl (Xylocaine 1% Pf 30ml Vial) 30 ml 1X PRN PRN INJ SEE COMMENTS; Start 06/16/20 at 19:30; Stop 06/17/20 at 21:08; Status DC Oxytocin 500 ml @ 0 mls/hr CONT PRN IV SEE I/O RECORD Last administered on 06/17/20at 11:40; Start 06/16/20 at 19:30; Stop 06/17/20 at 21:08; Status DC Oxytocin 500 ml @ 0 mls/hr CONT PRN PRN IV Post delivery bleeding; Start 06/16/20 at 19:30; Stop 06/17/20 at 21:08; Status DC Ibuprofen (Motrin) 800 mg PRN Q6HRS PRN PO PAIN; Start 06/16/20 at 19:30; Stop 06/17/20 at 21:08; Status DC Dinoprostone (Cervidil) 10 mg 1X ONCE VG Last administered on 06/16/20at 19:30; Start 06/16/20 at 19:30; Stop 06/16/20 at 19:56; Status DC Lidocaine HCl (Lidocaine Pf 2% Vial) 5 ml STK-MED ONCE .ROUTE ; Start 06/17/20 at 09:22; Stop 06/17/20 at 09:22; Status DC Fentanyl Citrate 50 ml @ As Directed STK-MED ONCE .ROUTE ; Start 06/17/20 at 09:34; Stop 06/17/20 at 09:34; Status DC Magnesium Hydroxide (Milk Of Magnesia) 2,400 mg PRN DAILY PRN PO CONSTIPATION; Start 06/17/20 at 11:30 Al Hydroxide/Mg Hydroxide (Mylanta Plus Xs) 30 ml PRN Q4HRS PRN PO HEARTBURN / GAS; Start 06/17/20 at 11:30 Simethicone (Gas-X) 80 mg PRN AFTMEALHC PRN PO GAS / BLOATING; Start 06/17/20 at 11:30 Diphenhydramine HCl (Benadryl) 25 mg PRN Q6HRS PRN PO ITCHING; Start 06/17/20 at 11:30 Phenyleph/Shark Oil/Min Oil/Petrol (Preparation H) 1 yoel PRN QID PRN RC RECTAL PAIN; Start 06/17/20 at 11:30 Ferrous Sulfate (Feosol) 325 mg BIDWMEALS PO ; Start 06/18/20 at 08:00; Stop 06/18/20 at 07:15; Status DC Info (Do NOT chart on this placeholder) 1 ea 1X PRN PRN MC SEE COMMENTS; Start 06/17/20 at 11:30 Info (Do NOT chart on this placeholder) 1 ea 1X PRN PRN MC SEE COMMENTS; Start 06/17/20 at 11:30; Stop 06/17/20 at 21:08; Status DC Multivitamins (Thera M Plus) 1 tab DAILY PO Last administered on 06/18/20at 10:07; Start 06/18/20 at 09:00 Acetaminophen/ Hydrocodone Bitart (Lortab 5/325) 1 tab PRN Q4HRS PRN PO MODERATE PAIN; Start 06/17/20 at 11:30 Acetaminophen/ Hydrocodone Bitart (Lortab 5/325) 2 tab PRN Q4HRS PRN PO SEVERE PAIN; Start 06/17/20 at 11:30 Ibuprofen (Motrin) 800 mg Q8HRS PO Last administered on 06/17/20at 17:20; Start 06/17/20 at 14:00; Stop 06/17/20 at 22:15; Status DC Oxytocin (Oxytocin Premix Infusion) 30 unit STK-MED ONCE IV ; Start 06/17/20 at 06:00; Stop 06/17/20 at 12:57; Status DC Ibuprofen (Motrin) 800 mg PRN Q8HRS PRN PO pain Last administered on 06/18/20at 10:08; Start 06/17/20 at 22:15 Docusate Sodium (Colace) 100 mg PRN BID PRN PO HARD STOOLS Last administered on 06/18/20at 10:07; Start 06/18/20 at 10:00 Active Scripts Active Ibuprofen 800 Mg Tablet 800 Mg PO TID 30 Days Hydrocodone-Apap 7.5-325 (Hydrocodone Bit/Acetaminophen) 1 Tab Tablet 1 Tab PO PRN Q6HRS PRN 30 Days Feosol (Ferrous Sulfate) 325 Mg Tablet 325 Mg PO BIDWMEALS 30 Days Vitals/I & O Vital Sign - Last 24 Hours 06/17/20 06/17/20 06/17/20 06/18/20 14:01 15:34 17:47 01:11 Temp 97.7 98.0 97.7 98.0 Pulse 88 74 65 Resp 18 B/P (MAP) 122/64 (83) 134/83 (100) 110/59 (76) Pulse Ox 98 06/18/20 05:15 Temp 98.4 98.4 Pulse 72 Resp 18 B/P (MAP) 106/ Intake and Output 06/17/20 06/17/20 06/18/20 15:00 23:00 07:00 Intake Total 500 ml 850 ml 750 ml Output Total 500 ml Balance 0 ml 850 ml 750 ml Justifications for Admission Other Justification NELSON ECHEVARRIA MD Jun 18, 2020 10:20
[2020-06-18 11:16] VITALS: BP 118/75
[2020-06-18 12:06] VITALS: BP 118/75
[2020-06-18 15:09] VITALS: BP 124/83
[2020-06-18 20:13] VITALS: BP 124/84
[2020-06-19] MEDS: IBUPROFEN 400 MG TABLET. PO PRN (06:25)
[2020-06-19 06:33] VITALS: BP 119/80
[2020-06-19 09:45] VITALS: BP 114/68
--- NOTE | 2020-06-19 12:47 | PDOC3 ---
OB DISCHARGE SUMMARY DATE OF ADMISSION: 06/16/20 DATE OF DISCHARGE: 06/19/20 REASON FOR ADMISSION: Induction of labor INTRAPARTUM PROCEDURES: Spontanous Vag Deliv DISCHARGE INFORMATION: Activity (no sexual activity 6 weeks) HOSPITAL COURSE Routine CONDITION AT DISCHARGE Stable NELSON ECHEVARRIA MD Jun 19, 2020 12:47
[2020-06-19] MEDS ORDERED: HYDR-2765 PO (12:50)
[2020-06-19] MEDS ORDERED: IBUP-1060 PO (12:50)
[2020-06-19] MEDS ORDERED: DOCU-153 PO (12:50)
[2020-06-19 14:06] VITALS: BP 123/83
== END 2020-06-19 14:00 | disposition home or self-care (01) | DRG 807 ==
LOC: 3 SO LND 19:05 → 3 NORTH 06-17 18:51
PROVIDERS: ADMIT Family Medicine; ATTEND Family Medicine
PROC: 10E0XZZ Delivery of Products of Conception, External Approach (ICD-10-PCS; principal; 2020-06-17)
PROC: 10907ZC Drainage of Amniotic Fluid, Therapeutic from Products of Conception, Via Natural or Artificial Opening (ICD-10-PCS; 2020-06-17)
PROC: 0HQ9XZZ Repair Perineum Skin, External Approach (ICD-10-PCS; 2020-06-17)
PROC: 3E0P7VZ Introduction of Hormone into Female Reproductive, Via Natural or Artificial Opening (ICD-10-PCS; 2020-06-17)
PROC: 00HU33Z Insertion of Infusion Device into Spinal Canal, Percutaneous Approach (ICD-10-PCS; 2020-06-17)
PROC: 3E0R3BZ Introduction of Anesthetic Agent into Spinal Canal, Percutaneous Approach (ICD-10-PCS; 2020-06-17)
DX: O76 Abnormality in fetal heart rate and rhythm complicating labor and delivery (principal); Z37.0 Single live birth; O70.0 First degree perineal laceration during delivery; Z3A.39 39 weeks gestation of pregnancy
CPT/HCPCS: 36415; 81001; 85025; 86592; 86850; 86900; 86901; 87086; J2590; J3010; J7120; G0378

== ENCOUNTER → 2020-08-21 | Outpatient (CLI) | payer BC ==
[~2020-08-21] MED LIST changes: +DOCU-153 PO
--- NOTE | 2020-08-21 08:52 | KCIC ---
EXAMINATION: Magnetic resonance imaging (MRI) of the lumbar spine without contrast 08/21/2020 8:00 AM HISTORY: Left leg weakness, frequent falls. History of prior surgery within the thoracic spine. TECHNIQUE: Multiplanar multi-weighted MRI of the lumbar spine was performed without intravenous contr ast using the standard lumbar spine protocol. Contrast information: None administered. COMPARISON: None available. FINDINGS: The alignment of the lumbar spine is normal. Vertebral bodies demonstrate normal signal intensity on all sequences. There are no compression fractures. The conus medullaris terminates at the level of L1. The distal spinal cord signal intensity is normal. Mild disc height loss of disc desiccation at L2-L3. Limited views of the abdomen and pelvis show no soft tissue abnormality. The aorta is normal . L1-L2: The disc is normal in configuration. There is no facet arthropathy. There is no neuroforaminal stenosis. There is no spinal canal stenosis. L2-L3: Mild disc bulge asymmetric to the left. There is mild left facet arthropathy. There is no neur oforaminal stenosis. There is no spinal canal stenosis. L3-L4: The disc is normal in configuration. There is no facet arthropathy. There is no neuroforaminal stenosis. There is no spinal canal stenosis. L4-L5: The disc is normal in configuration. There is mild facet arthropathy. There is no neuroforamin al stenosis. There is no spinal canal stenosis. L5-S1: The disc is normal in configuration. There is mild facet arthropathy. There is no neuroforamin al stenosis. There is no spinal canal stenosis. IMPRESSION: No significant disc herniation, neuroforaminal or spinal canal stenosis. No suspicious mass is visual ized. Electronically signed by: Loraine Powell MD (08/21/2020 8:50 AM) [id number]
== END ==
LOC: KCIC MRI 07:53
PROVIDERS: ATTEND Family Medicine
DX: M47.817 Spondylosis without myelopathy or radiculopathy, lumbosacral region (principal); R29.898 Other symptoms and signs involving the musculoskeletal system; R29.6 Repeated falls
CPT/HCPCS: 72148

== ENCOUNTER → 2020-09-25 | Outpatient (CLI) | payer BC ==
--- NOTE | 2020-09-25 12:54 | KCIC ---
MRI THORACIC SPINE WO, MR CERVICAL SPINE WO DATE: 09/25/2020 9:32 AM INDICATION: Reason: LEFT LOWER EXTREMITY WEAKNESS AND MUSCLE ATROPHY / Spl. 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 Wosening left leg weakness and hypersensitivity to hot a nd cold. TECHNIQUE: Multiplanar multisequence magnetic resonance imaging of the cervical and thoracic spine wa s performed without administration of intravenous contrast using the standard spine protocol. COMPARISON: None. FINDINGS: Straightening of the cervical lordosis. No acute fracture. Mild multilevel degenerative disc desicca tion and disc height loss. No marrow replacing process to suggest malignancy. Congenital block verteb ra of T9-T10-T11. Mild left convex curvature centered at T10. Postsurgical changes of posterior decompression at T9-T11. Along the dorsal and left dorsal aspect of the spinal cord at the level of T10-11 is a circumscribed intradural extramedullary lesion which follows fat signal on all sequences and measures 1.1 x 0.4 x 3 .8 cm (TV by AP by CC). This results in mild spinal canal stenosis. There is some flattening of the s pine cord along where it abuts this lesion despite adequate ventral CSF. The spinal cord is normal in signal intensity. On the limited views of the cranial cavity and brain, the cerebellum and tayo have normal morphology and signal characteristics. No Chiari malformation. No soft tissue abnormality. Normal signal voids are present in the vertebral arteries. C2-3: No significant spinal canal stenosis or neural foraminal narrowing. C3-4: No significant spinal canal stenosis or neural foraminal narrowing. C4-5: No significant spinal canal stenosis or neural foraminal narrowing. C5-6: Disc osteophyte complex. No significant spinal canal stenosis or neural foraminal narrowing. C6-7: Disc osteophyte complex. Mild spinal canal stenosis. No neural foraminal narrowing. C7-T1: No significant spinal canal stenosis or neural foraminal narrowing. Thoracic: Intradural extramedullary lesion as detailed above. Remaining thoracic levels demonstrate n o significant spinal canal stenosis or neural foraminal narrowing. 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 Although this results in only mild narrowing of the spinal canal, there is f lattening of the spinal cord along where it abuts this lesion suggestive of adhesion. No abnormal spi nal cord signal. Prior posterior decompression at T9-T11. Electronically signed by: Carlos Enrique Spencer MD (09/25/2020 12:51 PM) [facility]
== END ==
LOC: KCIC MRI 09:21
PROVIDERS: ATTEND Physical Medicine & Rehabilitation
DX: M48.02 Spinal stenosis, cervical region (principal); M25.78 Osteophyte, vertebrae; M48.04 Spinal stenosis, thoracic region; M54.6 Pain in thoracic spine
CPT/HCPCS: 72141; 72146

== ENCOUNTER → 2020-10-10 | Outpatient (CLI) | payer BC ==
[~2020-10-10] MED LIST changes: +GADOTERATE 7.5 MMOL/15ML VIAL. IVP ONE
--- NOTE | 2020-10-12 14:20 | KCIC ---
MRI THORACIC SPINE WITH IV CONTRAST Clinical Indication: Reason: T10-11 LESION / Spl. Instructions: Surgery as an to lower thoraci c. Abnormal MRI. Comparison: MR thoracic spine without contrast 09/25/2020. TECHNIQUE: Sagittal and axial T1 pre and postcontrast sequence imaging of the thoracic spine performe d. 12 cc of Clariscan are utilized. Findings: Redemonstrated posterior decompression of T9-T11. At the T10-T2 level the left and dorsal well-circumscribed intradural extra medullary lesion is stabl e in size and signal characteristics. On postcontrast images the lesion does not enhance. No abnormal enhancement of the spinal cord is identified. There is no abnormal enhancement elsewhere in the uppe r thoracic spine or within bony structures. IMPRESSION: No abnormal enhancement is identified in the thoracic spine. Specifically the lesion at T10-11 is non enhancing. 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 Electronically signed by: Dada Renee MD (10/12/2020 2:18 PM) [id number]
== END ==
LOC: KCIC MRI 15:25
PROVIDERS: ATTEND Neurological Surgery
DX: D17.79 Benign lipomatous neoplasm of other sites (principal)
CPT/HCPCS: 72147; A9575